=== PATIENT | male | born 1990 | race African-American/Black ===

== ENCOUNTER 2019-04-23 13:30 | Emergency (ER) | payer OTHER ==
[~2019-04-23] VITALS: Ht 175.3 cm; Wt 97.7 kg
[~2019-04-23 13:30] MED LIST: NOCURR
[2019-04-23] MEDS ORDERED: IBUP-2071 PO (13:38)
[2019-04-23] MEDS ORDERED: KETOROLAC TROMETHAMINE 30 MG/ML VIAL IM ONE (15:30)
[2019-04-23] MEDS ORDERED: CYCLOBENZAPRINE HCL 10 MG TABLET PO ONE (16:15)
[2019-04-23] MEDS ORDERED: LIDOCAINE 5% TRANSDERMAL PATCH TD ONE (16:30)
[2019-04-23 16:50] VITALS: BP 124/69
== END 2019-04-23 18:23 | disposition home or self-care (01) ==
LOC: EMS 13:33
DX: M54.5 Low back pain (principal); F12.90 Cannabis use, unspecified, uncomplicated; Z98.890 Other specified postprocedural states; X50.0XXA Overexertion from strenuous movement or load, initial encounter; Y93.89 Activity, other specified; Y92.69 Other specified industrial and construction area as the place of occurrence of the external cause; Y99.0 Civilian activity done for income or pay
CPT/HCPCS: 96372; 99283; J1885